=== PATIENT | female | born 1980 | race Two or more races ===

== ENCOUNTER → 2024-11-01 | Outpatient (CLI) | payer OTHER ==
--- NOTE | 2024-11-05 09:55 | MR ---
EXAMINATION TYPE: MR shoulder RT wo con DATE OF EXAM: 11/01/2024 10:35 PM COMPARISON: None. CLINICAL INDICATION: Female, 44 years old with history of M25.511, Right shoulder pain IV Contrast: cc (None if empty) TECHNIQUE: Multiplanar, multisequence imaging of the shoulder is performed without contrast. FINDINGS: There are a few tiny subchondral cysts in the lateral humeral head otherwise the osseous structures a re intact without bone contusion fracture or edema. There is no significant osteoarthritis of the AC joint or glenohumeral joint. The tendons of the rotator cuff are intact. There is no subacromial or subdeltoid bursitis. The biceps tendon is normal in signal intensity and position within the bicipital groove and the jeanna ps anchor is intact. There is no evidence of labral tear. IMPRESSION: Tiny subchondral cysts in the lateral humeral head with no other significant abnormality seen. There is no labral or rotator cuff tear. [facility], , 11/05/2024 9:53 AM
== END | disposition home or self-care (01) ==
LOC: RADMRIMAIN 21:57
PROVIDERS: ATTEND Orthopaedic Surgery
DX: M85.611 Other cyst of bone, right shoulder (principal); M25.511 Pain in right shoulder

== ENCOUNTER → 2025-01-12 | Outpatient (CLI) | payer OTHER ==
--- NOTE | 2025-01-12 21:44 | MR ---
INDICATION: Patient age:Female; 44 years old; Reason for study: M54.2, M62.81; [facility]. COMPARISON: Cervical spine radiographs 12/21/2024. TECHNIQUE: Multi planar, multi sequence imaging was performed of the cervical spine. No Gadolinium wa s given. FINDINGS: Alignment: The cervical vertebral bodies have preserved heights. Alignment is within normal limits gi ramses patient positioning. Bones: Bone signal is within normal limits. No abnormal STIR signal. Cord: The spinal cord is unremarkable with regards to their signal intensity and morphology. Discs: Multilevel disc desiccation is present without disc height loss. C2-C3: No significant disc pathology. The spinal canal is patent. No neural foraminal stenosis. C3-C4: No significant disc pathology. The spinal canal is patent. No neural foraminal stenosis. C4-C5: No significant disc pathology. The spinal canal is patent. No neural foraminal stenosis. C5-C6: Small central disc protrusion with minimal effacement of the anterior thecal sac. No abutment of the spinal cord. No significant spinal canal stenosis. Mild right neuroforaminal stenosis. The le ft neural foramen is patent. C6-C7: Right foraminal disc protrusion. No spinal canal stenosis. The left neural foramen is patent. Severe right neural foraminal stenosis (series 601, image 13). C7-T1: No significant disc pathology. The spinal canal is patent. No neural foraminal stenosis. Other: None. IMPRESSION: Multilevel disc degeneration at C5-C6 and C6-C7. Right foraminal disc protrusion resulting in severe right neural foraminal stenosis at C6-C7. [facility], , 01/12/2025 9:42 PM
== END | disposition home or self-care (01) ==
LOC: RADMRIMAIN 20:50
PROVIDERS: ATTEND Orthopaedic Surgery
DX: M48.02 Spinal stenosis, cervical region (principal); M50.322 Other cervical disc degeneration at C5-C6 level
CPT/HCPCS: 72141